=== PATIENT | female | born 1975 | race Caucasian/White ===

== ENCOUNTER 2018-02-24 19:04 | Inpatient (IN) | payer BC, SELFPAY ==
[2018-02-24] MEDS ORDERED: Ondansetron ODT 8 MG TAB ONE (19:17)
[2018-02-24] MEDS ORDERED: Fentanyl 100 MCG/2 ML VIAL ONE ×2 (19:17→20:53)
[2018-02-24 19:31] LABS: #Eosinphils 0.2 thou/uL (0.0-0.7); #Lymphocytes 1.9 thou/uL (1.20-3.40); #Neutrophils 10.3 thou/uL (1.40-6.50); %Basophils 0.4 % (0.0-1.0); %Eosinophils 1.4 % (0.0-10.0); %Monocytes 7.6 % (0.0-10.0); %Neutrophils 76.7 % (42.0-75.0); Hemoglobin 14.5 g/dL (12.0-16.0); Mean Corpuscular HGB CONC 34.9 g/dL (32.0-36.0); Mean Corpuscular Hemoglobin 32.6 pg (27.0-31.0); Mean Corpuscular Volume 93.3 fl (81.0-99.0); Mean Platelet Volume 7.2 fL (7.4-10.4); Platelet Count 232 thou/uL (130-400); RBC Distribution Width 11.5 % (11.5-14.5); Red Blood Cell (RBC) Count 4.46 mill/uL (4.20-5.40); White Blood Cell (WBC) Count 13.4 thou/uL (4.8-10.8)
[2018-02-24] MEDS ORDERED: Promethazine HCl 25 MG/ML VIAL ONE (19:44)
[2018-02-24 19:49] LABS: BHCG - Serum Negative (NEGATIVE); Pregs Control Background? CLEAR/WHITE (CLR/WHITE); Pregs Control Bar Appear? YES (CONTROL BAR)
[2018-02-24 19:55] LABS: ALT (SGPT) 20 U/L (8-55); AST (SGOT) 21 U/L (5-34); Albumin 4.3 g/dL (3.5-5.0); Alkaline Phosphatase 70 U/L (40-150); Anion Gap 11 mmol/L (10-20); BUN (Urea Nitrogen) 14 mg/dL (7.0-18.7); Bilirubin, Total 0.7 mg/dL (0.2-1.2); Calc. Creatinine Clearance 0 mL/min (70-130); Carbon Dioxide 22 mmol/L (22-29); Chloride 107 mmol/L (98-107); Estimated GFR-MDRD 79; Globulin 2.6 g/dL (2.4-3.5); Glucose 120 mg/dL (70-105); Potassium 3.7 mmol/L (3.5-5.1); Protein, Total 6.9 g/dL (6.0-8.3); Sodium 136 mmol/L (136-145)
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
[2018-02-24] MEDS ORDERED: Dextrose 50% Abboject 50 ML SYRINGE SLOW IVP PRN (23:00)
[2018-02-24] MEDS ORDERED: Dextrose 5% in Water 1,000 ML IV PRN (23:00)
[2018-02-24] MEDS ORDERED: Ondansetron HCl/PF 4 MG/2 ML Vial IVP PRN (23:00)
[2018-02-24 23:25] VITALS: BMI 31.3
[2018-02-24] MEDS: Morphine 4 MG/ML VIAL SLOW IVP PRN (23:39)
[2018-02-24] MEDS: Sodium Chloride 0.9% 1,000 ML IV SCH (23:42)
[2018-02-24] MEDS: Acetaminophen 1,000 MG in Premix Bag 1 BAG IVPB SCH (23:42)
[2018-02-25] MEDS ORDERED: Bacitracin Zinc 1 Packet TOP SCH (00:15)
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
[2018-02-25] MEDS: Morphine 4 MG/ML VIAL SLOW IVP PRN ×3 (04:01→11:58)
[2018-02-25 04:39] LABS: #Eosinphils 0.1 thou/uL (0.0-0.7); #Lymphocytes 1.6 thou/uL (1.20-3.40); #Monocytes 0.8 thou/uL (0.11-0.59); #Neutrophils 4.3 thou/uL (1.40-6.50); %Basophils 0.6 % (0.0-1.0); %Eosinophils 1.8 % (0.0-10.0); %Lymphocytes 22.9 % (21.0-51.0); %Monocytes 12.1 % (0.0-10.0); %Neutrophils 62.6 % (42.0-75.0); Hemoglobin 12.2 g/dL (12.0-16.0); Mean Corpuscular HGB CONC 34.1 g/dL (32.0-36.0); Mean Corpuscular Hemoglobin 32.3 pg (27.0-31.0); Mean Corpuscular Volume 94.6 fl (81.0-99.0); Mean Platelet Volume 7.5 fL (7.4-10.4); Platelet Count 180 thou/uL (130-400); RBC Distribution Width 11.6 % (11.5-14.5); Red Blood Cell (RBC) Count 3.79 mill/uL (4.20-5.40); White Blood Cell (WBC) Count 6.8 thou/uL (4.8-10.8)
[2018-02-25 04:47] LABS: Anion Gap 10 mmol/L (10-20); BUN (Urea Nitrogen) 14 mg/dL (7.0-18.7); Calc. Creatinine Clearance 153 mL/min (70-130); Calcium 8.1 mg/dL (7.8-10.44); Carbon Dioxide 23 mmol/L (22-29); Chloride 109 mmol/L (98-107); Estimated GFR-MDRD Greater than 90; Glucose 117 mg/dL (70-105); Magnesium 1.9 mg/dL (1.6-2.6); Potassium 3.9 mmol/L (3.5-5.1); Sodium 138 mmol/L (136-145)
[2018-02-25] MEDS: Acetaminophen 1,000 MG in Premix Bag 1 BAG IVPB SCH ×4 (05:46→23:16)
[2018-02-25] MEDS: Ketorolac Tromethamine 30 MG/ML VIAL IVP PRN ×2 (07:32→15:16)
[2018-02-25] MEDS ORDERED: Clindamycin/D5W 900 MG in Premix Bag 1 BAG IVPB SCH (08:00)
[2018-02-25] MEDS: Bacitracin Zinc 1 Packet TOP SCH ×3 (08:02→23:16)
[2018-02-25] MEDS: Famotidine 40 MG/4 ML VIAL SLOW IVP SCH ×2 (08:04→23:16)
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
[2018-02-25] MEDS: Sodium Chloride 0.9% 1,000 ML IV SCH (10:48)
[2018-02-25] MEDS ORDERED: Dexamethasone 20 MG/5 ML VIAL ONE (11:58)
[2018-02-25] MEDS ORDERED: PROPOFOL 200 MG/20 ML VIAL ONE (11:58)
[2018-02-25] MEDS ORDERED: Lidocaine 1% PF 5 ML VIAL ONE (11:58)
[2018-02-25] MEDS ORDERED: Ondansetron HCl/PF 4 MG/2 ML Vial ONE ×2 (11:58→19:11)
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
[2018-02-25] MEDS ORDERED: Morphine 4 MG/ML VIAL ONE (16:22)
[2018-02-25] MEDS ORDERED: Clindamycin/D5W 900 mg/50 ml Premix Bag ONE (18:58)
[2018-02-25] MEDS ORDERED: Fentanyl 250 MCG/5 ML VIAL ONE (19:11)
[2018-02-25] MEDS ORDERED: Midazolam HCl 2 mg/2 ml Vial ONE (19:11)
--- NOTE | 2018-02-25 21:58 | RAD ---
LEFT TIBIA AND FIBULA TWO VIEWS: HISTORY: Intraoperative films. FINDINGS: These show an intramedullary tim stabilizing the distal tibial fracture in place. A plate and screws stabilize the distal fibular fracture. IMPRESSION: Open reduction and internal fixation of distal tibia and fibula fractures. POS: [facility]
[2018-02-26] MEDS: Morphine 4 MG/ML VIAL SLOW IVP PRN ×2 (01:52→05:58)
[2018-02-26] MEDS: Sodium Chloride 0.9% 1,000 ML IV SCH (01:53)
[2018-02-26] MEDS: Clindamycin/D5W 900 MG in Premix Bag 1 BAG IVPB SCH ×2 (01:53→11:51)
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
[2018-02-26] MEDS: Ketorolac Tromethamine 30 MG/ML VIAL IVP PRN (04:29)
[2018-02-26] MEDS: Levothyroxine Sodium 125 MCG TAB PO SCH (05:59)
[2018-02-26] MEDS ORDERED: Acetaminophen 500 MG TAB PO SCH ×2 (08:00→12:00)
[2018-02-26] MEDS ORDERED: traMADol HCl 50 MG TAB PO SCH (08:00)
[2018-02-26] MEDS ORDERED: Senokot 8.6 MG TAB PO PRN (08:02)
[2018-02-26 08:06] LABS: #Lymphocytes 0.8 thou/uL (1.20-3.40); #Monocytes 0.7 thou/uL (0.11-0.59); #Neutrophils 5.5 thou/uL (1.40-6.50); %Basophils 0.2 % (0.0-1.0); %Eosinophils 0.2 % (0.0-10.0); %Lymphocytes 12.1 % (21.0-51.0); %Monocytes 9.6 % (0.0-10.0); Mean Corpuscular HGB CONC 34.1 g/dL (32.0-36.0); Mean Corpuscular Hemoglobin 32.5 pg (27.0-31.0); Mean Corpuscular Volume 95.3 fl (81.0-99.0); Mean Platelet Volume 7.1 fL (7.4-10.4); Platelet Count 173 thou/uL (130-400); RBC Distribution Width 11.2 % (11.5-14.5); Red Blood Cell (RBC) Count 3.71 mill/uL (4.20-5.40)
[2018-02-26 08:25] LABS: Anion Gap 12 mmol/L (10-20); BUN (Urea Nitrogen) 7 mg/dL (7.0-18.7); Calc. Creatinine Clearance 146 mL/min (70-130); Calcium 8.4 mg/dL (7.8-10.44); Carbon Dioxide 23 mmol/L (22-29); Chloride 105 mmol/L (98-107); Estimated GFR-MDRD 90; Glucose 146 mg/dL (70-105); Phosphorus 2.4 mg/dL (2.3-4.7); Sodium 136 mmol/L (136-145)
[2018-02-26] MEDS: Bacitracin Zinc 1 Packet TOP SCH ×3 (08:34→20:59)
[2018-02-26] MEDS: Ibuprofen 600 MG TAB PO SCH ×3 (08:35→20:58)
[2018-02-26] MEDS: Docusate 100 MG CAP PO SCH ×2 (08:35→20:59)
[2018-02-26] MEDS: Bupropion 150 MG XL TAB PO SCH (08:35)
[2018-02-26] MEDS: Famotidine 20 MG TAB PO SCH ×2 (08:44→20:59)
[2018-02-26] MEDS: HYDROcodone/Acetaminophen 7.5/325 mg Tablet PO PRN ×3 (11:53→20:59)
[2018-02-26] MEDS: Acetaminophen 500 MG TAB PO SCH ×3 (11:54→22:29)
[2018-02-26] MEDS: traMADol HCl 50 MG TAB PO SCH ×2 (13:05→17:51)
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
[2018-02-26] MEDS: Enoxaparin Sodium 40 MG/0.4 ML SYRINGE SC SCH (21:00)
[2018-02-26] MEDS ORDERED: Enoxaparin Sodium 30 MG/0.3 ML SYRINGE SC SCH (21:00)
[2018-02-27] MEDS: traMADol HCl 50 MG TAB PO SCH ×2 (01:23→06:26)
[2018-02-27] MEDS: Ibuprofen 600 MG TAB PO SCH ×4 (01:24→20:57)
[2018-02-27] MEDS: Acetaminophen 500 MG TAB PO SCH (04:09)
[2018-02-27] MEDS: HYDROcodone/Acetaminophen 7.5/325 mg Tablet PO PRN ×4 (06:25→17:46)
[2018-02-27] MEDS: Levothyroxine Sodium 125 MCG TAB PO SCH (06:25)
[2018-02-27] MEDS: Docusate 100 MG CAP PO SCH ×2 (09:17→20:57)
[2018-02-27] MEDS: Bupropion 150 MG XL TAB PO SCH (09:17)
[2018-02-27] MEDS: Famotidine 20 MG TAB PO SCH ×2 (09:17→20:58)
[2018-02-27] MEDS: Bacitracin Zinc 1 Packet TOP SCH ×3 (09:17→20:57)
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
[2018-02-27] MEDS: Enoxaparin Sodium 40 MG/0.4 ML SYRINGE SC SCH (20:58)
[2018-02-28] MEDS: Ibuprofen 600 MG TAB PO SCH ×3 (02:33→14:56)
[2018-02-28] MEDS: HYDROcodone/Acetaminophen 7.5/325 mg Tablet PO PRN ×4 (02:33→15:37)
[2018-02-28] MEDS: Levothyroxine Sodium 125 MCG TAB PO SCH (05:34)
[2018-02-28] MEDS ORDERED: Senokot 8.6 MG TAB PO SCH (06:45)
[2018-02-28] MEDS: Famotidine 20 MG TAB PO SCH (08:54)
[2018-02-28] MEDS: Bupropion 150 MG XL TAB PO SCH (08:54)
[2018-02-28] MEDS: Docusate 100 MG CAP PO SCH (08:54)
[2018-02-28] MEDS ORDERED: Konsyl 12 gm Packet PO SCH (09:00)
[2018-02-28] MEDS: Bacitracin Zinc 1 Packet TOP SCH ×2 (10:05→14:56)
[2018-02-28 11:49] VITALS: BP 130/85
[2018-02-28 15:52] VITALS: TEMP 98.9
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
== END 2018-02-28 16:32 | DRG 493 ==
LOC: ERS 19:04 → EDBD 22:42 → SURG A 22:42
PROVIDERS: ADMIT Specialist; ATTEND Specialist
PROC: 0QSK04Z Reposition Left Fibula with Internal Fixation Device, Open Approach (ICD-10-PCS; principal; 2018-02-25)
PROC: 0QSH06Z Reposition Left Tibia with Intramedullary Internal Fixation Device, Open Approach (ICD-10-PCS; 2018-02-25)
DX: S82.452A Displaced comminuted fracture of shaft of left fibula, initial encounter for closed fracture (principal); S22.31XA Fracture of one rib, right side, initial encounter for closed fracture; S82.252A Displaced comminuted fracture of shaft of left tibia, initial encounter for closed fracture; G89.11 Acute pain due to trauma; M19.90 Unspecified osteoarthritis, unspecified site; E03.9 Hypothyroidism, unspecified; S00.81XA Abrasion of other part of head, initial encounter; S40.219A Abrasion of unspecified shoulder, initial encounter; S30.811A Abrasion of abdominal wall, initial encounter; S80.212A Abrasion, left knee, initial encounter; S80.211A Abrasion, right knee, initial encounter; F32.9 Major depressive disorder, single episode, unspecified; F17.210 Nicotine dependence, cigarettes, uncomplicated; Z88.5 Allergy status to narcotic agent; Z88.0 Allergy status to penicillin; Z79.899 Other long term (current) drug therapy; V28.1XXA Motorcycle passenger injured in noncollision transport accident in nontraffic accident, initial encounter
CPT/HCPCS: 36415; 70450; 71045; 72125; 72170; 76001; 80048; 80053; 83605; 83735; 84100; 84703; 85025; 86850; 86900; 86901; 93005; 94760; 96365; 96366; 96375; 96376; C1713; C1769; G0390; G8978-GP-CL; G8979-GP-CJ; G8987-GO-CK; G8988-GO-CI; J0131; J1100; J1650; J1885; J2001; J2250; J2270; J2405; J2550; J2704; J3010; J3490